=== PATIENT | female | born 1935 | race Caucasian/White ===

== ENCOUNTER → 2016-09-13 | Outpatient (CLI) | payer OTHER ==
[2016-09-13 12:20] LABS: PROTHROMBIN TIME 19.9 secs (9.7-11.4)
== END ==
LOC: MOB LAB 11:57 → LAB 11:57
PROVIDERS: ATTEND Internal Medicine Cardiovascular Disease
DX: I48.91 Unspecified atrial fibrillation (principal)
CPT/HCPCS: 36415; 85610

== ENCOUNTER → 2016-09-24 | Outpatient (CLI) | payer OTHER ==
[2016-09-24 11:29] LABS: PROTHROMBIN TIME 19.5 secs (9.7-11.4)
== END ==
LOC: LAB 10:25
PROVIDERS: ATTEND Internal Medicine Cardiovascular Disease
DX: I48.91 Unspecified atrial fibrillation (principal)
CPT/HCPCS: 36415; 85610

== ENCOUNTER → 2016-10-01 | Outpatient (CLI) | payer OTHER ==
[2016-10-01 15:59] LABS: PROTHROMBIN TIME 28.5 secs (9.7-11.4)
== END ==
LOC: LAB 15:14
PROVIDERS: ATTEND Internal Medicine Cardiovascular Disease
DX: I48.91 Unspecified atrial fibrillation (principal)
CPT/HCPCS: 36415; 85610

== ENCOUNTER → 2016-11-15 | Outpatient (CLI) | payer OTHER ==
[2016-11-15 09:42] LABS: BASOPHILS # (AUTO) 0.03 10*3/UL; BASOPHILS % (AUTO) 0.6 % (0-1); HEMATOCRIT 28.9 % (37.0-47.0); HEMOGLOBIN 8.1 g/dL (12.0-16.0); IMM GRAN % (AUTO) 0.2 % (0-5); IMM GRAN# (AUTO) 0.01 10*3/UL; LYMPHOCYTES # (AUTO) 0.58 10*3/uL; LYMPHOCYTES % (AUTO) 11.6 % (10-50); MEAN CORPUSCULAR HEMOGLOBIN 21.7 PG (27-31); MEAN PLATELET VOLUME 8.5 FL (7.4-12.2); NEUTROPHILS % (AUTO) 73.6 % (50-80); RDW COEFFICIENT OF VARIATION 20.3 % (11.5-14.5); RED BLOOD COUNT 3.73 10^6/uL (4.20-5.40); WHITE BLOOD COUNT 5.02 10^3/uL (4.8-10.8)
[2016-11-15 09:47] LABS: PLATELET MORPHOLOGY COMMENT NORMAL MORPHOLOGY (NORM)
[2016-11-15 09:53] LABS: PROTHROMBIN TIME 22.9 secs (9.7-11.4)
[2016-11-15 11:04] LABS: PERCENT IRON SATURATION 4.87 % (14-50)
== END ==
LOC: LAB 09:26
PROVIDERS: ATTEND Internal Medicine Gastroenterology
DX: I48.91 Unspecified atrial fibrillation (principal); D50.8 Other iron deficiency anemias
CPT/HCPCS: 36415; 83540; 83550; 85025; 85610

== ENCOUNTER → 2016-12-07 | Outpatient (CLI) | payer OTHER ==
--- NOTE | 2016-12-07 11:50 | DI ---
CT ABDOMEN SCAN WITHOUT AND WITH IV CONTRAST, 12/07/2016 8:27 AM : Clinical History: Iron deficiency anemia. Previous Exam: 11/25/2015. Scans are performed from the lower lung bases through the liver and kidneys without and with IV contr ast. Sagittal and coronal images are generated. 75 ml of Isovue 300 was injected IV. Low density oral barium contrast (Volumen - low density CT enterography oral contrast) was administered for all phase s of the exam, although the patient could only drink one bottle. Postcontrast scans through the upper abdomen and pelvis were performed at 1 minute and 5 minutes post injection. The delayed scans throug h the pelvis were performed with the metal artifact reduction sequence to better visualize the soft t issues of the pelvis. There is a small right pleural effusion. A prominent pectus excavatum deformity is noted. Even with t he pectus deformity, there is cardiomegaly with predominantly right heart enlargement. The noncontras t scans through the heart clearly demonstrate the right and left ventricular myocardial tissue as wel l as the septum and this would be consistent with the clinical diagnosis of anemia. The noncontrast a nd portal venous phase scans through the liver show a prominent appearance of the hepatic veins and I VC. This would suggest hepatic congestion with evidence of elevated right heart pressures and probabl e tricuspid insufficiency. Delayed scans through the liver show no evidence of metastatic disease. Th ere is cholelithiasis with calcified gallstones in the range of 10-15 mm in diameter. There is no jonathan ma of the gallbladder wall to indicate acute cholecystitis. The common hepatic duct and common bile d uct measure 4 mm. There is no evidence of intrahepatic biliary dilatation. However, the distal common bile duct is associated with some focal areas of increased density that are suspicious for common bi le duct stones that do not cause any obstruction. There is no abnormality of the spleen, pancreas, an d adrenal glands. Both kidneys are normal in size, shape, position and contour. There is no hydroneph rosis or hydroureter. No renal or ureteral calculi are present. There are no abnormal retrocrural or periaortic nodes. There is no ascites. READIN. Abnormal liver appearance on the precontrast and portal venous phase scans demonstrating prominen t hepatic veins and probably unopacified portions of liver parenchyma secondary to elevated right hea rt pressures and tricuspid insufficiency. There is no evidence of intrahepatic biliary dilatation or of a discrete solid or cystic lesion of the liver. 2. Cholelithiasis without evidence of acute cholecystitis. There is no dilatation of the common duct but there are densities similar to the gallstones in the path of the distal common bile duct. These are suspicious for nonobstructing common duct stones. 3. Prominent visualization of the right and left ventricular chambers consistent with the clinical d iagnosis of anemia. The differential density between the myocardial tissue in the blood in the chambe rs is significant and this suggests severe anemia. 4. Small right pleural effusion. CT PELVIS SCAN WITHOUT AND WITH IV CONTRAST, 12/07/2016 8:27 AM: Clinical History: See above. Previous Exam: 11/25/2015. Scans are performed from just superior to the umbilicus to the symphysis pubis without and with IV co ntrast. This is the same bolus of IV contrast used for the CT scans of the abdomen. Scans through the lower abdomen and pelvis show no masses or abnormal fluid collections. There is no adenopathy. The appendix is not visualized but there is no evidence of a cecal mass or an inflammator y mass in the right lower quadrant. The small bowel, terminal ileum, and ileocecal valve are intact. The colon is normal. No obvious annular lesion is identified. There is a very small umbilical hernia through which only mesenteric fat has herniated. The patient is status post hysterectomy and bilater al salpingo-oophorectomy. The patient has osteoporosis and is status post previous ORIF of a left hip fracture and has a total right hip replacement for a right hip fracture. READIN. No gross abnormality of the small or large bowel is seen to explain the patient's iron deficiency anemia. 2. Examination of the pelvis is otherwise normal. 3. Severe osteoporosis.
== END ==
LOC: CT 08:18
PROVIDERS: ATTEND Internal Medicine Gastroenterology
DX: D50.9 Iron deficiency anemia, unspecified (principal)
CPT/HCPCS: 36415; 74178; 82565; 84520

== ENCOUNTER → 2016-12-27 | Outpatient (CLI) | payer OTHER | LOC: LAB 10:41 | PROVIDERS: ATTEND Internal Medicine Cardiovascular Disease | DX: I48.91 Unspecified atrial fibrillation (principal) | CPT/HCPCS: 36415; 85610 ==

== ENCOUNTER 2017-01-27 17:45 | Inpatient (IN) | payer OTHER ==
[2017-01-27] MEDS ORDERED: NORMAL SALINE 10 ML SYRINGE FLUSH IVP PRN ×2 (17:58→22:11)
[2017-01-27] MEDS ORDERED: Sodium Chloride 0.9% 1,000 ML PRIMARY IV ONE (17:58)
[2017-01-27 18:20] LABS: VENOUS PH 7.42 (7.32-7.42)
[2017-01-27] MEDS ORDERED: Sodium Chloride 0.9% 1,000 ML ONE ×2 (18:49→20:39)
[2017-01-27] MEDS ORDERED: PANTOPRAZOLE IV 40 MG VIAL ONE (19:10)
[2017-01-27] MEDS ORDERED: METRONIDAZOLE 500 MG IV ONE (20:38)
[2017-01-27] MEDS ORDERED: cefTRIAXone 1 GM VIAL ONE (20:38)
[2017-01-27] MEDS ORDERED: Sodium Chloride 0.9% 100 ML IV ONE (20:47)
[2017-01-27] MEDS ORDERED: ACETAMINOPHEN 325 MG TABLET PO PRN (22:11)
[2017-01-27] MEDS ORDERED: ONDANSETRON 4 MG/2 ML VIAL IVP PRN (22:11)
[2017-01-27] MEDS ORDERED: Sodium Chloride 0.9% 500 ML PRIMARY IV ONE (22:11)
[2017-01-27] MEDS ORDERED: LIDOCAINE W/ SODIUM BICARB 0.5 ML SYR SUBD PRN (22:11)
[2017-01-27] MEDS ORDERED: LORATADINE 10 MG TABLET PO PRN (22:16)
[2017-01-27 22:17] LABS: BASOPHILS # (AUTO) 0.01 10*3/UL; BASOPHILS % (AUTO) 0.1 % (0-1); EOSINOPHILS # (AUTO) 0.01 10*3/UL; EOSINOPHILS % (AUTO) 0.1 % (0-8); HEMATOCRIT 25.4 % (37.0-47.0); HEMOGLOBIN 7.1 g/dL (12.0-16.0); LYMPHOCYTES # (AUTO) 0.14 10*3/uL; MEAN CORPUSCULAR HEMOGLOBIN 20.2 PG (27-31); MEAN CORPUSCULAR VOLUME 72.4 FL (81-99); MEAN PLATELET VOLUME 9.1 FL (7.4-12.2); MONOCYTES # (AUTO) 0.76 10*3/UL (0.3-0.8); NEUTROPHILS # (AUTO) 11.76 10*3/UL; NEUTROPHILS % (AUTO) 92.5 % (50-80); RED BLOOD COUNT 3.51 10^6/uL (4.20-5.40)
[2017-01-27 22:18] LABS: PLATELET MORPHOLOGY COMMENT NORMAL MORPHOLOGY (NORM); RBC MORPHOLOGY COMMENT SEE COMMENTS (NORM); WBC MORPHOLOGY COMMENT NORMAL MORPHOLOGY (NORM)
[2017-01-27] MEDS ORDERED: PHYTONADIONE 10 MG/1 ML AMPULE PO ONE (22:18)
[2017-01-27 22:24] LABS: BLOOD UREA NITROGEN 23 mg/dL (7-22); BUN/CREATININE RATIO 25.55 (6-20); C-REACTIVE PROTEIN 2.3 mg/dL (0.0-0.9); MAGNESIUM 1.8 mg/dL (1.6-2.4)
[2017-01-27 22:26] LABS: LIPASE 54 IU/L (23-300)
--- NOTE | 2017-01-27 22:28 | PDOC ---
History and Physical - History of Present Illness Date and Time of Service: 01/27/2017, 10:25 PM Chief Complaint: Abdominal pain History of Present Illness: This very pleasant 81-year-old female with prior history of iron deficiency anemia, atrial fibrillation, hip replacement that was treated for presumed infection that did not need to be washed out, amongst issues of hypertension as well. She comes in accompanied by her daughter in tonight with complaints of acute abdominal pain. The pain was located mostly in the midepigastric and left upper quadrant region. A CT scan was significant for diverticulitis in the emergency room. The patient had fevers and chills, and was quite weak and that's why her daughter called 911 to have her brought in by ambulance tonight from [place]. The patient was so weak, that she could barely sit up. She is stronger now and feels like fluids have helped a bit here in the emergency room. Patient's never had diverticular problems before. 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 Her INR was noted to be a 5.2 tonight as well. She had nausea but no vomiting. She denies any black or tarry stools or blood in the stool or any coffee-ground emesis. She did have a colonoscopy about a year ago with Dr. Mcfadden. I'm told that the CT scan did not show any perforation. I do not have the official report back yet from the CT scan. Past Medical History Medical History: 1. Chronic atrial fibrillation although this may have been paroxysmal atrial fibrillation. Patient is on flecainide, metoprolol. And Coumadin for stroke prevention. She tells me that her film mounter was thinking of taking her off of her Coumadin. 2. Hypertension. 3. Seasonal allergies. 4. Osteoarthritis, right knee has been flared lately. Surgical History: 1. Left hip fracture repair in 2013, subsequent hardware removal. 2. Total vaginal hysterectomy with bilateral support oophorectomy. 3. ORIF of right humeral fracture. 4. 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 That happened in 2015. 5. Arthroscopic knee surgery Pertinent Family History: Family history of heart disease with her father who of congestive heart failure in her mother who had a myocardial infarction but of COPD and diabetes complications Past Social History: Patient doesn't smoke and doesn't drink. Lives in [place], [place]. Has a daughter who is present here bedside tonight. Tobacco Use: Never Smoker Substance Use Type: None Alcohol Use: Rarely Medication / Allergies Home Medications: Home Medications Medication Instructions Recorded Confirmed Type Warfarin Sodium [Coumadin] 2 mg PO BEDTIME #0 tablet 02/10/14 01/27/17 Rx Flecainide Acetate 1 tab PO Q12H tab 05/09/14 01/27/17 History Metoprolol Succinate 1 tab PO DAILY tab 05/09/14 01/27/17 History Omeprazole 20 mg PO DAILY 09/09/15 01/27/17 History Beta Carot W/Vit E,C,Min Tab 1 each PO DAILY 12/16/15 01/27/17 History [Ocuvite Tab] Glucosa Camacho 2Kcl/Chondroitin Camacho 1 each PO DAILY 12/16/15 01/27/17 History [Glucosamine & Chondroitin Cap] Loratadine [Claritin] 10 mg PO DAILY PRN 12/16/15 01/27/17 History Potassium Chloride [Klor-Con] 20 meq PO DAILY tab 04/17/16 01/27/17 Rx Furosemide 1 tab PO DAILY PRN #30 tab 05/14/16 01/27/17 Clinic Estrogens, Conj Vaginal Cream 0.5 gm VAGINAL 3x wk #1 tube 09/13/16 01/27/17 Clinic [Premarin Vaginal Cream] Clobetasol Propionate [Temovate] 1 applic TOPICAL BID #1 tube 09/23/16 01/27/17 Clinic Benazepril HCl 20 mg PO DAILY tab 10/01/16 01/27/17 History Gabapentin 1 cap PO TID #90 cap 12/22/16 01/27/17 Clinic Allergies/Adverse Reactions: Allergies Allergy/AdvReac Type Severity Reaction Status Date / Time No Known Allergies Allergy Verified 01/27/17 17:49 Review of Systems - Review of Systems All Systems: Reviewed & No Additional Complaints Except as Stated (I did a 12 point review systems and it was negative other than that discussed in history present illness and that noted below.) - Constitutional Constitutional: REPORTS: Fever/Chills - Cardiovascular Cardiovascular: REPORTS: Negative System Review - Gastrointestinal Gastrointestinal / Abdominal: REPORTS: Nausea, Abdominal Pain - Genitourinary Genitourinary: REPORTS: Negative System Review - Musculoskeletal Musculoskeletal: REPORTS: Joint Pain - Knees (Right knee) Exam - Vitals Vital Signs: Vital Signs - Last Taken Temperature 98.2 F 01/27/17 17:45 Pulse Rate 70 01/27/17 17:45 Respiratory Rate 18 01/27/17 17:45 Blood Pressure 156/62 01/27/17 17:45 Pulse Ox 92 01/27/17 17:45 - General General Appearance: POSITIVE: No Acute Distress, Cooperative - Head Head Exam: POSITIVE: Normal Inspection, Normocephalic, Atraumatic - Eye Eye Exam: POSITIVE: No Scleral Icterus - ENT ENT Exam: POSITIVE: Mucous Membranes Dry - Neck Neck Exam: POSITIVE: Normal Inspection, No Tenderness, No Thyromegaly - Respiratory Respiratory Exam: POSITIVE: Clear to Auscultation - Bilaterally, Breathing Non Labored, Normal to Percussion and Palpation - Cardiovascular Cardiovascular Exam: POSITIVE: RRR, No Murmur, No Clicks, No Gallops, No Rubs - GI/Abdominal GI/Abdominal Exam: POSITIVE: Normal Bowel Sounds, Non Distended, Soft Additional GI/Abdominal Exam Details: Some central and left upper quadrant abdominal pain - Rectal Rectal Exam: POSITIVE: Deferred - External Exam: POSITIVE: Deferred Exam: POSITIVE: Deferred - Extremities Extremities Exam: POSITIVE: No Clubbing Present, No Edema Present, No Cyanosis Present - Back Back Exam: POSITIVE: Normal Inspection, No CVA Tenderness - Neurological Neurological Exam: POSITIVE: Alert, Oriented x 3, No Facial Droop, Speech Intact / Clear, Moves All Extremities Equally - Psychiatric Psychiatric Exam: POSITIVE: Normal Affect, Normal Mood - Integumentary Integumentary Exam: POSITIVE: Normal Color, Warm, Dry, Intact - Central Line Examination Central Line Present on Admission: No Results - Labs CBC and BMP: 01/27/17 18:00 01/27/17 18:00 Labs - Last 24 Hours: Laboratory Results 01/27/17 01/27/17 01/27/17 Range/Units 18:00 18:07 19:15 WBC 12.71 H (4.8-10.8) 10^3/uL RBC 3.51 L (4.20-5.40) 10^6/uL Hgb 7.1 L (12.0-16.0) g/dL Hct 25.4 L (37.0-47.0) % MCV 72.4 L (81-99) FL MCH 20.2 L (27-31) PG MCHC 28.0 L (33-37) g/dL RDW Std Deviation 54.9 H (39-50) fL RDW Coeff of Waqar 21.5 H (11.5-14.5) % Plt Count 344 (140-350) 10*3/uL MPV 9.1 (7.4-12.2) FL Immature Gran % (Auto) 0.2 (0-5) % Neut % (Auto) 92.5 H (50-80) % Lymph % (Auto) 1.1 L (10-50) % Butts % (Auto) 6.0 (5-15) % Eos % (Auto) 0.1 (0-8) % Baso % (Auto) 0.1 (0-1) % Immature Gran # (Auto) 0.03 10*3/UL Neut # (Auto) 11.76 10*3/UL Lymph # (Auto) 0.14 10*3/uL Butts # (Auto) 0.76 (0.3-0.8) 10*3/UL Eos # (Auto) 0.01 10*3/UL Baso # (Auto) 0.01 10*3/UL WBC Morphology Comment Normal morphology (NORM) Plt Morphology Comment Normal morphology (NORM) RBC Morph Comment See comments (NORM) PT 55.4 H (9.7-11.4) secs INR 5.20 (0.00-5.90) N/A D-Dimer 0.53 (0.00-0.59) mg/L VBG pH 7.42 (7.32-7.42) VBG pCO2 39 L (45-55) mmHg VBG HCO3 25 (22-26) mmol/L VBG Base Excess 0 (-2-2) MMOL/L Sodium 135 (135-145) meq/L Potassium 3.3 L (3.8-5.2) meq/L Chloride 102 (98-112) meq/L Carbon Dioxide 24 (23-33) meq/L Anion Gap 9 (5-20) BUN 23 H (7-22) mg/dL Creatinine 0.9 (0.50-1.20) mg/dL Estimated GFR [employer] BUN/Creatinine Ratio 25.55 H (6-20) Glucose 87 (78-110) mg/dL Calculated Osmolality 282.0 (267-292) mOsm/kg Lactic Acid 1.3 (0.70-2.10) MMOL/L Calcium 8.0 L (8.7-10.7) mg/dL Magnesium 1.8 (1.6-2.4) mg/dL Total Bilirubin 4.2 H (0.3-1.2) mg/dL AST 109 H (8-39) IU/L ALT 43 (9-52) IU/L Alkaline Phosphatase 194 H (38-126) IU/L Troponin I 0.015 (< 0.040) ng/mL C-Reactive Protein 2.3 H (0.0-0.9) mg/dL NT-Pro-B Natriuret Pep 45102 H (0-450) PG/ML Total Protein 6.0 L (6.1-8.0) g/dL Albumin 3.0 L (3.5-4.8) g/dL Globulin 3.0 (2.50-4.10) g/dL Albumin/Globulin Ratio 1.00 L (1.3-2.0) mg/g Amylase 44 (30-110) U/L Lipase 54 (23-300) IU/L Blood Type O POSITIVE Antibody Screen Negative Crossmatch See Detail - EKG Data -: EKG Interpreted by Me Rate: Normal EKG Shows Normal: Sinus Rhythm - EKG Data EKG Interpretation: LVH - Imaging Status: Image Reviewed by Me (Chest x-ray, on my view, shows a heart that looks enlarged although this is a portable film and a blunted costophrenic angle on the right. CT scan of the abdomen and pelvis, on my view shows what appears to be a distended gallbladder, liver looks atypical, but on the recent CT scan it was read as density changes without any mass or cystic lesion. There is a pleural effusion on the right as well. There is some distortion from the right hip fracture replacement done in the past. I cannot tell that there is any evidence of diverticulitis but there appears to be diverticular disease.) Assessment and Plan - Patient Problems (1) Acute diverticulitis Current Visit: Yes Status: Acute (2) Anemia associated with acute blood loss Current Visit: Yes Status: Acute (3) Hypokalemia Current Visit: Yes Status: Acute (4) Atrial fibrillation Current Visit: Yes Status: Chronic Qualifiers: Atrial fibrillation type: chronic Qualified Description: Chronic atrial fibrillation Qualifier Code(s): (I48.2) Chronic atrial fibrillation (5) Hypertension Current Visit: Yes Status: Chronic Qualifiers: Hypertension type: essential hypertension Qualified Description: Essential hypertension Qualifier Code(s): (I10) Essential (primary) hypertension (6) Pleural effusion Current Visit: Yes Status: Chronic (7) Elevated INR Current Visit: Yes Status: Acute (8) Abnormal liver CT Current Visit: Yes Status: Acute - Assessment / Plan Additional Assessment/Plan Details: Admit the patient. IV antibiotics including Rocephin and Flagyl for diverticulitis, started clear liquid diet and adjust as necessary. The pain is actually more centered in the epigastrium and left upper quadrant, so watch carefully as this could certainly be ulcer, and place on Protonix. Packed red blood cell transfusion and recheck blood counts tomorrow morning. I think at this time, vitamin K should be given and I'll get that by mouth 1 dose here tonight. Recheck PT and INR in the morning. Ultimately, I think the patient would do better on a different medication and I went through anticoagulant medication choices. The patient and I spoke in depth regarding Coumadin versus Xarelto versus Eliquis, including all risks and benefits, risks being bleeding complications and possible pitfalls of not being able to reverse bleeding with antidotes, and benefits cream treatment of blood clot, lack of drug interactions, and ease of therapy in terms of lab monitoring. The patient wants to think about it and also discuss wither her film mounter. holding off on coumadin for now tele monitoring replace potassium tylenol PRN for fever may need further workup on liver--MRI of abdomen or special phase CT scan of liver to explore more. The appearance on CT scan is abnormal, but no definitive diagnosis. add an alpha feto protein to AM labs. complex, lots of issues, infection, bleeding, transfusion, IV antibiotics. FULL CODE Photo / Body Diagrams - Uploaded Photos Uploaded Photos:
[2017-01-27] MEDS ORDERED: FLECAINIDE ACETATE 50 MG PO SCH (22:30)
--- NOTE | 2017-01-27 22:49 | PDOC ---
General Adult HPI - General Chief Complaint: General Medical Stated Complaint: WEAK, NAUSEATED, ABD PAIN, FEVER Date Seen by Provider: 01/27/17 Time Seen by Provider: 17:55 Source: POSITIVE: Patient, EMS Exam Limitations: POSITIVE: No limitations Nurse's Notes Reviewed & Considered: Yes EMS Report Reviewed & Considered: Verbal - History of Present Illness Initial Comment: The patient is an 81-year-old female who is transported to the emergency department per [facility] with complaints of generalized weakness, chills, nausea and abdominal cramping. The patient reports that she has a history of atrial fibrillation for which he takes Coumadin and flecanide. In addition she reports a history of iron deficiency anemia for which she has undergone fairly extensive workup recently with the GI doctors in [place]. She states she had upper and lower endoscopy as well as swallowing the camera. She was found to have some type of lesion in her small intestine for which she is scheduled to return to [place] on February 07 for some type of laser procedure. She reports that over the past couple of days she has had decreased appetite as well as some upper abdominal pain and cramping associated with nausea. She has not had any associated vomiting or diarrhea. She denies any blood in her stool. She states that this afternoon she developed chills. She attempted to get up out of her chair and was too weak to stand. Subsequently EMS was called. When they arrived on scene she was febrile with a temperature of 101. She was subsequently transported here to the emergency department. She was somewhat hypoxic when EMS arrived and she was placed on O2 per nasal cannula. She denies any complaints of chest pain. She does report she has had some increase shortness of breath recently which she attributes to her anemia. She denies any pain or swelling in her legs. Have you received a tetanus shot in the past 10 years?: Yes - Patient Home Medications Home Medications: Home Medications Warfarin Sodium [Coumadin] 2 mg PO BEDTIME #0 tablet 02/10/14 Flecainide Acetate 1 tab PO Q12H tab 05/09/14 Metoprolol Succinate 1 tab PO DAILY tab 05/09/14 Omeprazole 20 mg PO DAILY 09/09/15 Beta Carot W/Vit E,C,Min Tab [Ocuvite Tab] 1 each PO DAILY 12/16/15 Glucosa Camacho 2Kcl/Chondroitin Camacho [Glucosamine & Chondroitin Cap] 1 each PO DAILY 12/16/15 Loratadine [Claritin] 10 mg PO DAILY PRN 12/16/15 Potassium Chloride [Klor-Con] 20 meq PO DAILY tab 04/17/16 Furosemide 1 tab PO DAILY PRN #30 tab 05/14/16 Estrogens, Conj Vaginal Cream [Premarin Vaginal Cream] 0.5 gm VAGINAL 3x wk #1 tube 09/13/16 Clobetasol Propionate [Temovate] 1 applic TOPICAL BID #1 tube 09/23/16 Benazepril HCl 20 mg PO DAILY tab 10/01/16 Gabapentin 1 cap PO TID #90 cap 12/22/16 - Patient Allergies Allergies/Adverse Reactions: Allergies Allergy/AdvReac Type Severity Reaction Status Date / Time No Known Allergies Allergy Verified 01/27/17 17:49 Past Medical History - heen HEENT History: Macular Degeneration, Chipped or Loose Teeth, Other (please comment) Additional HEENT History: SOME MISSING TEETH. ENVIRONMENTAL ALLERGIES WITH DRAINAGE Cardiovascular History: CHF, Arrhythmia, Other (please comment) Additional Cardiovasular History: A- fib./ ON COUMADIN. TRICUSPID REGURGITATION. MITRAL AND AORTIC REGURGITATION Respiratory History: Denies History Gastrointestinal History: GERD Genitourinary History: Denies History Endocrine History: Denies History Musculoskeletal History: Arthritis, Osteoporosis Prosthesis or Implant: Yes (RIGHT HIP) Additional Musculoskeletal History: Bilateral knees scopes,. right hip replacment Neurological History: Denies History Blood Disorders: Denies History, Anemia Psychiatric History: Denies History History of Sexually Transmitted Diseases: No Female Reproductive History: Denies History Obstetrical History: Denies History Cancer History: Denies History In Past Year Been Physically Harmed or Verbally Threatened: No History of MDRO: No History of Other Communicable Diseases: No Tobacco Use: Never Smoker Alcohol Use: None Substance Use Type: None Previous Surgical History: Yes Type / Date of Surgery: RIGHT HIP FX/LEFT HIP FX/RIGHT HUMERUS FX/APPENDECTOMY, R SHOULDER REPAIR, TOTAL HYSTERECTOMY, BILATERAL KNEE SCOPES. Anesthesia Reactions: No (PONV IN PAST) Malignant Hyperthermia: No Significant Family History: Heart disease Additional Family History: Parents and brothers Past Medical History Reviewed: Reviewed - No Changes ROS - Limitations ROS Limitations: No Limitations Constitution: REPORTS: Chills, Fever Cardiovascular: DENIES: Chest Pain, Heart Palpitations, Edema Respiratory: REPORTS: Shortness Of Breath. DENIES: Cough Non Productive, Cough Productive, Hurts To Breathe Neurological: REPORTS: Denies Neuro Symptoms. DENIES: Numbness, Weakness Gastrointestinal: REPORTS: Abdominal Pain, Nausea, Constipation (She reports intermittent constipation). DENIES: Vomitting, Diarrhea, Black Stools, Bloody Stools Musculoskeletal: REPORTS: Denies MS Symptoms Genitourinary: REPORTS: Denies Symptoms, Other (She does report she has had decreased urination today). DENIES: Dysuria, Flank Pain, Hematuria, Difficulty Urinating Eyes: REPORTS: Denies Symptoms ENT: REPORTS: Denies Symptoms Skin: DENIES: Rash General Adult Exam - General Appearance General Appearance: POSITIVE: Alert, Cooperative, No Acute Distress - HEENT HEENT: POSITIVE: Head Inspection Nml, Dry Mucous Membranes, Other (Pale mucous membranes) - Neck Neck: POSITIVE: Normal Inspection. NEGATIVE: Lymphadenopathy - Respiratory Respiratory: POSITIVE: No Respiratory Distress, Breath Sounds Normal - Cardiovascular Cardiovascular: POSITIVE: Regular Rate & Rhythm Peripheral Pulses: Dorsalis-pedis (R): 2+, Dorsalis-pedis (L): 2+ - Abdomen Abdomen: Soft: (All Quadrants), No Guarding: (All Quadrants), No Rebound: (All Quadrants), No Distention: (All Quadrants) Additional Abdominal Details: She does report some generalized abdominal discomfort with exam however denies nawaf tenderness - Back Back: POSITIVE: Normal Inspection - Skin Skin: POSITIVE: No Rash, Pallor - Extremities Extremity: Normal ROM: (All Extremities), Normal Inspection: (All Extremities) - Neurological / Psychological Neurological: POSITIVE: Oriented X3, 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 Lab Results Reviewed: Yes Lab Results:: Laboratory Results 01/27/17 01/27/17 01/27/17 Range/Units 18:00 18:07 19:15 WBC 12.71 H (4.8-10.8) 10^3/uL RBC 3.51 L (4.20-5.40) 10^6/uL Hgb 7.1 L (12.0-16.0) g/dL Hct 25.4 L (37.0-47.0) % MCV 72.4 L (81-99) FL MCH 20.2 L (27-31) PG MCHC 28.0 L (33-37) g/dL RDW Std Deviation 54.9 H (39-50) fL RDW Coeff of Waqar 21.5 H (11.5-14.5) % Plt Count 344 (140-350) 10*3/uL MPV 9.1 (7.4-12.2) FL Immature Gran % (Auto) 0.2 (0-5) % Neut % (Auto) 92.5 H (50-80) % Lymph % (Auto) 1.1 L (10-50) % Forrest % (Auto) 6.0 (5-15) % Eos % (Auto) 0.1 (0-8) % Baso % (Auto) 0.1 (0-1) % Immature Gran # (Auto) 0.03 10*3/UL Neut # (Auto) 11.76 10*3/UL Lymph # (Auto) 0.14 10*3/uL Forrest # (Auto) 0.76 (0.3-0.8) 10*3/UL Eos # (Auto) 0.01 10*3/UL Baso # (Auto) 0.01 10*3/UL WBC Morphology Comment Normal morphology (NORM) Plt Morphology Comment Normal morphology (NORM) RBC Morph Comment See comments (NORM) PT 55.4 H (9.7-11.4) secs INR 5.20 (0.00-5.90) N/A D-Dimer 0.53 (0.00-0.59) mg/L VBG pH 7.42 (7.32-7.42) VBG pCO2 39 L (45-55) mmHg VBG HCO3 25 (22-26) mmol/L VBG Base Excess 0 (-2-2) MMOL/L Sodium 135 (135-145) meq/L Potassium 3.3 L (3.8-5.2) meq/L Chloride 102 (98-112) meq/L Carbon Dioxide 24 (23-33) meq/L Anion Gap 9 (5-20) BUN 23 H (7-22) mg/dL Creatinine 0.9 (0.50-1.20) mg/dL Estimated GFR Overlay Plastician BUN/Creatinine Ratio 25.55 H (6-20) Glucose 87 (78-110) mg/dL Calculated Osmolality 282.0 (267-292) mOsm/kg Lactic Acid 1.3 (0.70-2.10) MMOL/L Calcium 8.0 L (8.7-10.7) mg/dL Magnesium 1.8 (1.6-2.4) mg/dL Total Bilirubin 4.2 H (0.3-1.2) mg/dL AST 109 H (8-39) IU/L ALT 43 (9-52) IU/L Alkaline Phosphatase 194 H (38-126) IU/L Troponin I 0.015 (< 0.040) ng/mL C-Reactive Protein 2.3 H (0.0-0.9) mg/dL NT-Pro-B Natriuret Pep 40945 H (0-450) PG/ML Total Protein 6.0 L (6.1-8.0) g/dL Albumin 3.0 L (3.5-4.8) g/dL Globulin 3.0 (2.50-4.10) g/dL Albumin/Globulin Ratio 1.00 L (1.3-2.0) mg/g Amylase 44 (30-110) U/L Lipase 54 (23-300) IU/L Blood Type O POSITIVE Antibody Screen Negative Crossmatch See Detail EKG Interpretation:: POSITIVE: Normal Sinus Rhythm, Other (No acute ST segment or T-wave changes) - Patient's Progress MDM / ED Course: The patient did receive a 1 L bolus of normal saline. Her lab work reveals an elevated white count at 12.7. She is also anemic with a hemoglobin of 7.1. She was subsequently typed and crossed for 2 units of packed red blood cells. Her INR was also found to be elevated at 5.2. She did not exhibit any clinical evidence of active bleeding here in the emergency department. CT scan reveals evidence of gallstones with a distended gallbladder as well as early sigmoid diverticulitis per radiologist. Blood cultures had been obtained with IV start and her lactate was normal. Findings were discussed with the patient as well as with Dr. Prasad. She will be treated for diverticulitis with Rocephin and Flagyl. She will be admitted for further treatment and monitoring. - Consult Counseled: POSITIVE: Patient, Family, RE: Lab Results, RE: Radiology Results, RE : DX Patient Care Time - Estimated PCT Patient Care Time (In Minutes): 40 Vital Signs - Recent Vital Signs Vital Signs: Vital Signs (Last 8 hours) Temp Pulse Resp BP Pulse Ox 01/27/17 17:45 98.2 F 70 18 156/62 92 - VS Reviewed Vital Signs Reviewed: Yes Discharge Clinical Impression: Atrial fibrillation, Elevated INR, Anemia, Diverticulitis, Cholelithiases Discharge Disposition: Admit to Inpatient Condition: Fair Date Decision to Admit to Inpatient: 01/27/17 Time Decision to Admit to Inpatient: 20:00
[2017-01-27] MEDS ORDERED: PHYTONADIONE 10 MG/1 ML AMPULE ONE (23:40)
[2017-01-27] MEDS ORDERED: Sodium Chloride 0.9% 50 ML IV ONE (23:40)
[2017-01-27] MEDS: metroNIDAZOLE 500mg (Premix) 500 MG in Premix 1 BAG IV SCH (23:50)
[2017-01-28] MEDS ORDERED: [UNRECOGNIZED DRUG - OTHER] PRIMARY IV ONE (00:26)
[2017-01-28] MEDS ORDERED: Sodium Chloride 0.9% 500 ML ONE ×2 (00:28→15:37)
[2017-01-28] MEDS ORDERED: CEFTRIAXONE SODIUM 2 GM VIAL IV ONE (02:19)
[2017-01-28] MEDS ORDERED: Sodium Chloride 0.9% 100 ML IV ONE (02:20)
[2017-01-28] MEDS: cefTRIAXone Inj 2 GM in Sodium Chloride 0.9% 100 ML IV SCH ×2 (02:20→21:52)
[2017-01-28] MEDS ORDERED: ACETAMINOPHEN 325 MG TABLET PO ONE ×2 (03:17→13:44)
--- NOTE | 2017-01-28 07:09 | EKG ---
[address] [address] Measurements Intervals [place] Rate: 65 P: MA: 0 QRS: 5 QRSD: 104 T: 46 QT: 451 QTc: 462 Interpretive Statements Sinus rhythm with first degree AV block LEFT VENTRICULAR HYPERTROPHY AND ST-T CHANGE [VOLTAGE CRITERIA PLUS ST/T ABNORMALITY] POSSIBLE ANTERIOR MYOCARDIAL INFARCTION [30 ms Q WAVE IN V3/V4, OR R < 0.2 mV IN V4], OF INDETERMINATE AGE Compared to ECG 03/22/2016 14:58:30 Sinus bradycardia no longer present Myocardial infarct finding still present Electronically Signed On 01-28-17 08:05:53 MDT by Guilehrme Bustillos MD [email or web address]
[2017-01-28] MEDS: metroNIDAZOLE 500mg (Premix) 500 MG in Premix 1 BAG IV SCH ×3 (07:10→22:30)
[2017-01-28] MEDS: Sodium Chloride 0.9% 1,000 ML PRIMARY IV SCH ×3 (07:10→14:00)
[2017-01-28 08:29] LABS: HEMOGLOBIN 9.4 g/dL (12.0-16.0); MEAN CORPUSCULAR HEMOGLOBIN 21.2 PG (27-31); MEAN CORPUSCULAR HGB CONC 29.4 g/dL (33-37); MEAN CORPUSCULAR VOLUME 72.1 FL (81-99); MEAN PLATELET VOLUME 9.5 FL (7.4-12.2); RED BLOOD COUNT 4.44 10^6/uL (4.20-5.40)
[2017-01-28 08:53] LABS: BAND NEUTROPHILS % 4 % (0-10); LYMPHOCYTES % (MANUAL) 5 % (10-50); NEUTROPHILS % (MANUAL) 87 % (50-80)
[2017-01-28 08:54] LABS: BASOPHILS % (MANUAL) 0 % (0-1); EOSINOPHILS % (MANUAL) 1 % (0-8); MONOCYTES % (MANUAL) 3 % (0-12); PLATELET MORPHOLOGY COMMENT NORMAL MORPHOLOGY (NORM); RBC MORPHOLOGY COMMENT NORMAL MORPHOLOGY (NORM); WBC MORPHOLOGY COMMENT NORMAL MORPHOLOGY (NORM)
[2017-01-28] MEDS: Pantoprazole Inj 40 MG in Normal Saline Flush 10 ML IVP SCH (09:36)
[2017-01-28] MEDS: POTASSIUM CHLORIDE 20 MEQ TAB PO SCH (09:38)
[2017-01-28] MEDS: Beta Carot W/Vit E,C,Min Tab 1 TAB TAB PO SCH (09:38)
[2017-01-28] MEDS: METOPROLOL SUCCINATE 50 MG SR 24H TABLET PO SCH (09:38)
[2017-01-28 09:39] LABS: BUN/CREATININE RATIO 21.25 (6-20); CALCIUM 8.1 mg/dL (8.7-10.7)
[2017-01-28] MEDS: GABAPENTIN 100 MG CAPSULE PO SCH ×3 (09:39→20:11)
[2017-01-28] MEDS ORDERED: FLECAINIDE 100 MG TABLET PO SCH (09:45)
--- NOTE | 2017-01-28 09:48 | DI ---
AP CHEST X-RAY, 01/27/2017 11:38 PM : Clinical History: Anemia. Previous Exam: 04/02/2016. There is no acute soft tissue or bony abnormality. There is cardiac megaly with CHF. The heart has a globular configuration in this can either represent a cardiomyopathy or a pericardial effusion. There is no acute infiltrate. A small right pleural effusion is present. Mediastinal structures are normal . There are no pulmonary nodules. Readin. Cardiomegaly with CHF. The heart has a globular configuration consistent with a cardiomyopathy or a pericardial effusion. 2. Small right pleural effusion.
[2017-01-28] MEDS ORDERED: POTASSIUM CHLORIDE 20 MEQ TAB PO ONE (10:22)
[2017-01-28] MEDS ORDERED: PHYTONADIONE 10 MG/1 ML AMPULE PO ONE (10:22)
--- NOTE | 2017-01-28 13:39 | PDOC(PROG) ---
Date and Time of Service: 01/28/2017, 1325 Interval History: *Some nausea, but tolerating diet with no vomiting. No chest pain or shortness breath. Still feels fatigued. Objective : Data - Labs CBC and BMP: 01/28/17 08:10 01/28/17 08:10 Labs - Last 24 Hours: Laboratory Results 01/28/17 Range/Units 08:10 WBC 15.10 H (4.8-10.8) 10^3/uL RBC 4.44 (4.20-5.40) 10^6/uL Hgb 9.4 L (12.0-16.0) g/dL Hct 32.0 L (37.0-47.0) % MCV 72.1 L (81-99) FL MCH 21.2 L (27-31) PG MCHC 29.4 L (33-37) g/dL RDW Std Deviation 54.4 H (39-50) fL RDW Coeff of Waqar 21.1 H (11.5-14.5) % Plt Count 319 (140-350) 10*3/uL MPV 9.5 (7.4-12.2) FL Neutrophils % (Manual) 87 H (50-80) % Band Neutrophils % 4 (0-10) % Lymphocytes % (Manual) 5 L (10-50) % Monocytes % (Manual) 3 (0-12) % Eosinophils % (Manual) 1 (0-8) % Basophils % (Manual) 0 (0-1) % Metamyelocytes % Not Reportable Myelocytes % Not Reportable Promyelocytes % Not Reportable Blast Cells Not Reportable WBC Morphology Comment Normal morphology (NORM) Plt Morphology Comment Normal morphology (NORM) RBC Morph Comment Normal morphology (NORM) PT 48.6 H (9.7-11.4) secs INR 4.57 (0.00-5.90) N/A Sodium 138 (135-145) meq/L Potassium 3.4 L (3.8-5.2) meq/L Chloride 104 (98-112) meq/L Carbon Dioxide 24 (23-33) meq/L Anion Gap 10 (5-20) BUN 17 (7-22) mg/dL Creatinine 0.8 (0.50-1.20) mg/dL Estimated GFR (>60 ml/min/1.73m(2)) BUN/Creatinine Ratio 21.25 H (6-20) Glucose 100 (78-110) mg/dL Calculated Osmolality 287.0 (267-292) mOsm/kg Calcium 8.1 L (8.7-10.7) mg/dL Objective : Exam - General General Appearance: No Acute Distress, Cooperative Additional General Exam Details: Vital Signs - Last Taken Temperature 97.2 F 01/28/17 08:29 Pulse Rate 56 L 01/28/17 08:29 Respiratory Rate 20 01/28/17 08:29 Blood Pressure 160/50 01/28/17 08:29 Pulse Ox 98 01/28/17 08:29 - Eye Eye Exam: No Scleral Icterus - Respiratory Respiratory Exam: Clear to Auscultation - Bilaterally, Breathing Non Labored - Cardiovascular Cardiovascular Exam: RRR, No Murmur, No Clicks, No Gallops, No Rubs, No JVD - GI/Abdominal GI/Abdominal Exam: Normal Bowel Sounds, Non Tender, Non Distended, Soft - Extremities Extremities Exam: No Clubbing Present, No Edema Present, No Cyanosis Present - Neurological Neurological Exam: Alert, Oriented x 3, No Facial Droop, Speech Intact / Clear, Moves All Extremities Equally Assessment and Plan - Patient Problems (1) Acute diverticulitis Current Visit: Yes Status: Acute (2) Anemia associated with acute blood loss Current Visit: Yes Status: Acute (3) Hypokalemia Current Visit: Yes Status: Acute (4) Atrial fibrillation Current Visit: Yes Status: Chronic Qualifiers: Atrial fibrillation type: chronic Qualified Description: Chronic atrial fibrillation Qualifier Code(s): (I48.2) Chronic atrial fibrillation (5) Hypertension Current Visit: Yes Status: Chronic Qualifiers: Hypertension type: essential hypertension Qualified Description: Essential hypertension Qualifier Code(s): (I10) Essential (primary) hypertension (6) Pleural effusion Current Visit: Yes Status: Chronic (7) Elevated INR Current Visit: Yes Status: Acute (8) Abnormal liver CT Current Visit: Yes Status: Acute - Assessment / Plan Additional Assessment/Plan Details: Continue antibiotics, day 2 Advance diet to regular diet. I think we need to figure out what kind of imaging we need to do either MRI or a three-phase, chest CT study to look at the sliver in more depth. That being said, if it's from congestive heart failure and some of the studies have suggested severe anemia and increased chamber of heart dysfunction, then I think she might benefit from another unit of blood to keep her hemoglobin around 10 to avoid congestive heart failure from anemia. I will get her another unit today. Reduce fluids to 75 mL's per hour and probably stop tomorrow. Check labs tomorrow. Repeat vitamin K and continue to hold Coumadin. Photo / Body Diagrams - Uploaded Photos Uploaded Photos:
[2017-01-28] MEDS ORDERED: Sodium Chloride 0.9% 500 ML PRIMARY IV ONE (16:13)
--- NOTE | 2017-01-28 17:02 | DI ---
CT ABDOMEN SCAN WITHOUT AND WITH IV CONTRAST, 01/28/2017 2:00 PM : Clinical History: Abnormal postcontrast CT scan of the liver. Previous Exam: 11/25/2015; 12/07/2016; and 01/27/2017. Scans are performed from the lower lung bases through the liver and kidneys without and with IV contr ast. Sagittal and coronal reformatted images are generated. 75 ml of Isovue 300 was injected IV. Post contrast scans were obtained at 25 seconds, 60 seconds, and 3 minutes post injection. There is a prominent pectus excavatum deformity. A small right pleural effusion is present with right lower lobe atelectasis. There is cardiomegaly with 4 chamber dilatation consistent with a cardiomyop athy. There is retained contrast in the right heart at 25 seconds indicating there is decreased cardi ac output. The IVC is dilated and is larger in caliber than the aorta indicating elevated right heart pressures with tricuspid insufficiency. The liver is at the upper limits of normal in size and demon strates a mottled pattern on the noncontrast scans as well as the postcontrast scans. On the delayed 3 minute scan, the liver has a more uniform density. Review of the serial scans show that the liver a nd IVC from the study of 11/25/2015 have a normal appearance. The subsequent scans demonstrate signifi cant enlargement of the right heart with dilatation of the IVC indicating the patient had developed c or pulmonale with tricuspid insufficiency. The mottled appearance of the liver is consistent with anand ous congestion of the liver. Multiple laminated gallstones are present in the dependent portion of th e gallbladder without evidence of gallbladder edema to indicate acute cholecystitis. The common bile duct is dilated at 7-8 mm. There is some high density material in the distal common bile duct and com mon bile duct stones cannot be excluded. These findings in the common duct are new since the study of 12/07/2016. Both adrenal glands, the pancreas, and the spleen are normal. Both kidneys are normal in s ize, shape, position and contour. There is no hydronephrosis or hydroureter. No renal or ureteral renee culi are present. There are no abnormal retrocrural or periaortic nodes. There is no ascites. READIN. The mottled abnormal low-density pattern in the liver is secondary to cor pulmonale with tricuspi d insufficiency producing venous congestion of the liver. There is four-chamber dilatation and this p atient probably has a cardiomyopathy. Delayed passage of contrast into the systemic vascular system i ndicates decreased cardiac output. The IVC has a caliber greater than the aorta indicating elevated r ight heart pressures. 2. Cholelithiasis. The common duct measures 7-8 mm and there are some densities in the distal common bile duct. Distal common bile duct stones causing partial obstruction cannot be excluded. These find ings are new since the study from 12/07/2016.
[2017-01-29] MEDS: Sodium Chloride 0.9% 1,000 ML PRIMARY IV SCH (02:35)
[2017-01-29 05:42] LABS: BASOPHILS # (AUTO) 0.01 10*3/UL; BASOPHILS % (AUTO) 0.1 % (0-1); EOSINOPHILS # (AUTO) 0.09 10*3/UL; EOSINOPHILS % (AUTO) 0.8 % (0-8); HEMATOCRIT 34.5 % (37.0-47.0); HEMOGLOBIN 10.2 g/dL (12.0-16.0); LYMPHOCYTES # (AUTO) 0.36 10*3/uL; MEAN CORPUSCULAR HEMOGLOBIN 21.7 PG (27-31); MEAN CORPUSCULAR HGB CONC 29.6 g/dL (33-37); MEAN CORPUSCULAR VOLUME 73.2 FL (81-99); MEAN PLATELET VOLUME 10.9 FL (7.4-12.2); MONOCYTES # (AUTO) 0.78 10*3/UL (0.3-0.8); MONOCYTES % (AUTO) 6.8 % (5-15); NEUTROPHILS # (AUTO) 10.18 10*3/UL; NEUTROPHILS % (AUTO) 89.1 % (50-80); RED BLOOD COUNT 4.71 10^6/uL (4.20-5.40)
[2017-01-29] MEDS: metroNIDAZOLE 500mg (Premix) 500 MG in Premix 1 BAG IV SCH ×2 (05:49→14:42)
[2017-01-29 05:58] LABS: BUN/CREATININE RATIO 18.88 (6-20); CALCIUM 8.2 mg/dL (8.7-10.7)
[2017-01-29 06:06] LABS: PLATELET MORPHOLOGY COMMENT NORMAL MORPHOLOGY (NORM); RBC MORPHOLOGY COMMENT SEE COMMENTS (NORM); WBC MORPHOLOGY COMMENT NORMAL MORPHOLOGY (NORM)
[2017-01-29] MEDS: Pantoprazole Inj 40 MG in Normal Saline Flush 10 ML IVP SCH (08:53)
[2017-01-29] MEDS: GABAPENTIN 100 MG CAPSULE PO SCH (08:55)
[2017-01-29] MEDS: Beta Carot W/Vit E,C,Min Tab 1 TAB TAB PO SCH (08:55)
[2017-01-29] MEDS: METOPROLOL SUCCINATE 50 MG SR 24H TABLET PO SCH (08:56)
[2017-01-29] MEDS: POTASSIUM CHLORIDE 20 MEQ TAB PO SCH (08:56)
[2017-01-29] MEDS ORDERED: PHYTONADIONE 10 MG/1 ML AMPULE PO ONE (11:35)
--- NOTE | 2017-01-29 14:10 | DCSUMMARY ---
Hospitalization Summary Admit Date: 01/27/17 Discharge Date: 01/29/17 Primary Diagnosis:: sigmoid diverticulitis Secondary Diagnosis:: 1. Cardiomyopathy, possibly related to anemia, but cannot rule out other causes. 2. Atrial fibrillation 3. INR above 5. Now at 2.75 4. Anemia due to acute and chronic GI blood loss. 5. Cholelithiasis with choledocholithiasis suspected from CT scan. Liver congestion may also be playing a role in liver appearance. CT scan suggests choledocholithiasis. [address] scan of the abdomen shows liver congestion. Hospital Course: This is a very pleasant 81-year-old female that presented to us on the with complaints of abdominal pain. She located the abdominal pain in her epigastrium and on the left upper quadrant, but a CT scan was positive for diverticulitis. The same CT scan also showed possible liver congestion or fibrosis and it was recommended that further imaging be done. The patient had a prior hip replacement done and really is not a candidate for an abdominal MRI scan because of the hip replacement, so we got a 3-phase CT scan, and it showed liver congestion and four-chamber dilation consistent with cardiomyopathy, but did show choledocholithiasis. It appeared that stones were partially obstructive. The patient's total bilirubin and alkaline phosphatase have been elevated through the hospital stay, and it was difficult to tell prior to this three-phase study whether this was related to liver congestion and heart failure or not. The patient was admitted and placed on Rocephin and Flagyl, today being day 3 of therapy, for sigmoid diverticulitis. She is tolerating that well, and is actually advanced to a regular diet now and fluids a bit discontinued. The patient had significant anemia with her hemoglobin being around 7, we gave her 3 units total of packed red blood cells during the hospital stay. I don't know if this cardiomyopathy is reversible related to anemia or not, but that could certainly be one of the issues. Coronary artery disease has not been looked at in this patient for some time, and I think she would benefit from an evaluation for this cardiomyopathy. INR has been difficult to bring down, but I think the patient candidate for Coumadin therapy. She does require some medications for stroke prevention, but I think her valvular heart disease needs to be evaluated in more depth as well. She'll benefit from a high quality echocardiogram. I did stop her flecainide as she was quite bradycardic, and I think she'll be fine on the metoprolol alone. Given this constellation of findings, possible need for an ERCP, and eventual need for cardiac evaluation, I spoke with the hospitalist and rooming house operator in [place] regarding potential for transfer so that the process of these workups could be continued. Dr. Gayle graciously accepted the patient in transfer, and the rooming house operator stated that patient would likely need an ERCP although pending the workup discussed above. I told him I agreed with that wholeheartedly and felt that's why I wanted to transfer the patient in the first place. The patient is agreeable to the transfer. No complains of chest pain, shortness breath, but she does have some mild right quadrant. She is right upper quadrant pain. Assessment and Plan: 1. As per discharge assessments noted 2. Disposition: Patient is discharged to [facility] 3. Condition on discharge, stable and improved. However, based on the above conditions, the patient's condition could deteriorate 4. Diet: regular diet 5. Activities: As per Dr. Gayle in [facility] 6. Follow-Up: 1. 7 days post discharge from [facility], patient should see Dr. He 2. 7. Medications at the Time of Discharge: Active Medications Generic Name Dose Route Start Last Admin Trade Name Freq PRN Reason Stop Dose Admin Acetaminophen 650 mg 01/27/17 22:11 01/28/17 03:15 Tylenol PO 650 mg Q6H PRN Administration Pain or Fever Gabapentin 100 mg 01/28/17 09:00 01/29/17 08:55 Neurontin PO 100 mg TID CANDIDA Administration Ceftriaxone Sodium 2 gm/ 100 mls @ 200 mls/hr 01/27/17 22:30 01/28/17 21:52 Sodium Chloride IV 200 mls/hr Q24H CANDIDA Administration Metronidazole 500 mg/ Non- 100 mls @ 100 mls/hr 01/27/17 22:30 01/29/17 05:49 Formulary Medication IV 100 mls/hr Q8H CANDIDA Administration Sodium Chloride 25 mls @ 200 mls/hr 01/27/17 22:11 01/28/17 00:08 Normal Saline 0.9% IV 200 mls/hr .Post Infusion PRN Administration No Primary IV for Flush ONLY Pantoprazole Sodium 40 mg/ 10 mls @ 5 mls/min 01/28/17 09:00 01/29/17 08:53 Sodium Chloride IVP 5 mls/min DAILY CANDIDA Administration Lidocaine HCl 0.5 ml 01/27/17 22:11 Lidocaine Buffered Inj SUBD ONCE PRN IV Starts Loratadine 10 mg 01/27/17 22:16 Claritin PO DAILY PRN Allergies Metoprolol Succinate 50 mg 01/28/17 09:00 01/29/17 08:56 Toprol Xl PO 50 mg DAILY CANDIDA Administration Multivitamins/Minerals 1 tab 01/28/17 09:00 01/29/17 08:55 Ocuvite Tab PO 1 tab DAILY CANDIDA Administration Ondansetron HCl 4 mg 01/27/17 22:11 Zofran Inj IVP Q4H PRN NAUSEA / VOMITING Potassium Chloride 20 meq 01/28/17 09:00 01/29/17 08:56 Klor-Con PO 20 meq DAILY CANDIDA Administration Sodium Chloride 5 - 20 ml 01/27/17 22:11 01/28/17 07:10 Saline Flush IVP 10 ml BID PRN Administration Flush 8. Time, care, counseling and coordination of care for this discharge is greater than 30 minutes. Note that I had all films pushed up to Rob as well. From December on. Exam - Vitals Vital Signs: Vital Signs Temperature 98.6 F Temperature Source Temporal Artery Scan Pulse Rate [Apical] 86 Pulse Rate [Pulse Oximeter 70 Right] Pulse Rate 63 Respiratory Rate 18 Blood Pressure [Right Arm] 130/70 Blood Pressure 148/62 Pulse Ox 92 Oxygen Flow Rate 1 Oxygen Delivery Method Room Air Height 5 ft 9 in Weight 151 lb 12.8 oz - General General Appearance: POSITIVE: No Acute Distress, Cooperative - Head Head Exam: POSITIVE: Normal Inspection, Normocephalic, Atraumatic - Eye Eye Exam: POSITIVE: No Scleral Icterus - Respiratory Respiratory Exam: POSITIVE: Clear to Auscultation - Bilaterally, Breathing Non Labored - Cardiovascular Cardiovascular Exam: POSITIVE: RRR, No Murmur, No Clicks, No Gallops, No Rubs, No JVD - GI/Abdominal GI/Abdominal Exam: POSITIVE: Normal Bowel Sounds, Non Tender, Non Distended, Soft - Extremities Extremities Exam: POSITIVE: No Clubbing Present, No Edema Present, No Cyanosis Present - Neurological Neurological Exam: POSITIVE: Alert, Oriented x 3, No Facial Droop, Speech Intact / Clear, Moves All Extremities Equally - Psychiatric Psychiatric Exam: POSITIVE: Normal Affect, Normal Mood Data Perinent Studies: Laboratory Results 01/27/17 01/27/17 01/27/17 Range/Units 18:00 18:07 19:15 WBC 12.71 H (4.8-10.8) 10^3/uL RBC 3.51 L (4.20-5.40) 10^6/uL Hgb 7.1 L (12.0-16.0) g/dL Hct 25.4 L (37.0-47.0) % MCV 72.4 L (81-99) FL MCH 20.2 L (27-31) PG MCHC 28.0 L (33-37) g/dL RDW Std Deviation 54.9 H (39-50) fL RDW Coeff of Waqar 21.5 H (11.5-14.5) % Plt Count 344 (140-350) 10*3/uL MPV 9.1 (7.4-12.2) FL Immature Gran % (Auto) 0.2 (0-5) % Neut % (Auto) 92.5 H (50-80) % Lymph % (Auto) 1.1 L (10-50) % Cedar % (Auto) 6.0 (5-15) % Eos % (Auto) 0.1 (0-8) % Baso % (Auto) 0.1 (0-1) % Immature Gran # (Auto) 0.03 10*3/UL Neut # (Auto) 11.76 10*3/UL Lymph # (Auto) 0.14 10*3/uL Cedar # (Auto) 0.76 (0.3-0.8) 10*3/UL Eos # (Auto) 0.01 10*3/UL Baso # (Auto) 0.01 10*3/UL Neutrophils % (Manual) (50-80) % Band Neutrophils % (0-10) % Lymphocytes % (Manual) (10-50) % Monocytes % (Manual) (0-12) % Eosinophils % (Manual) (0-8) % Basophils % (Manual) (0-1) % Metamyelocytes % Myelocytes % Promyelocytes % Blast Cells WBC Morphology Comment Normal morphology (NORM) Plt Morphology Comment Normal morphology (NORM) RBC Morph Comment See comments (NORM) PT 55.4 H (9.7-11.4) secs INR 5.20 (0.00-5.90) N/A D-Dimer 0.53 (0.00-0.59) mg/L VBG pH 7.42 (7.32-7.42) VBG pCO2 39 L (45-55) mmHg VBG HCO3 25 (22-26) mmol/L VBG Base Excess 0 (-2-2) MMOL/L Sodium 135 (135-145) meq/L Potassium 3.3 L (3.8-5.2) meq/L Chloride 102 (98-112) meq/L Carbon Dioxide 24 (23-33) meq/L Anion Gap 9 (5-20) BUN 23 H (7-22) mg/dL Creatinine 0.9 (0.50-1.20) mg/dL Estimated GFR Consignee BUN/Creatinine Ratio 25.55 H (6-20) Glucose 87 (78-110) mg/dL Calculated Osmolality 282.0 (267-292) mOsm/kg Lactic Acid 1.3 (0.70-2.10) MMOL/L Calcium 8.0 L (8.7-10.7) mg/dL Magnesium 1.8 (1.6-2.4) mg/dL Total Bilirubin 4.2 H (0.3-1.2) mg/dL Conjugated Bilirubin (0.0-0.3) MG/DL Unconjugated Bilirubin (0.0-1.1) mg/dL AST 109 H (8-39) IU/L ALT 43 (9-52) IU/L Alkaline Phosphatase 194 H (38-126) IU/L Troponin I 0.015 (< 0.040) ng/mL C-Reactive Protein 2.3 H (0.0-0.9) mg/dL NT-Pro-B Natriuret Pep 27504 H (0-450) PG/ML Total Protein 6.0 L (6.1-8.0) g/dL Albumin 3.0 L (3.5-4.8) g/dL Globulin 3.0 (2.50-4.10) g/dL Albumin/Globulin Ratio 1.00 L (1.3-2.0) mg/g Amylase 44 (30-110) U/L Lipase 54 (23-300) IU/L Blood Type O POSITIVE Antibody Screen Negative Crossmatch See Detail 01/28/17 01/29/17 Range/Units 08:10 04:15 WBC 15.10 H 11.43 H (4.8-10.8) 10^3/uL RBC 4.44 4.71 (4.20-5.40) 10^6/uL Hgb 9.4 L 10.2 L (12.0-16.0) g/dL Hct 32.0 L 34.5 L (37.0-47.0) % MCV 72.1 L 73.2 L (81-99) FL MCH 21.2 L 21.7 L (27-31) PG MCHC 29.4 L 29.6 L (33-37) g/dL RDW Std Deviation 54.4 H 59.7 H (39-50) fL RDW Coeff of Waqar 21.1 H 22.9 H (11.5-14.5) % Plt Count 319 332 (140-350) 10*3/uL MPV 9.5 10.9 (7.4-12.2) FL Immature Gran % (Auto) 0.1 (0-5) % Neut % (Auto) 89.1 H (50-80) % Lymph % (Auto) 3.1 L (10-50) % Cedar % (Auto) 6.8 (5-15) % Eos % (Auto) 0.8 (0-8) % Baso % (Auto) 0.1 (0-1) % Immature Gran # (Auto) 0.01 10*3/UL Neut # (Auto) 10.18 10*3/UL Lymph # (Auto) 0.36 10*3/uL Cedar # (Auto) 0.78 (0.3-0.8) 10*3/UL Eos # (Auto) 0.09 10*3/UL Baso # (Auto) 0.01 10*3/UL Neutrophils % (Manual) 87 H (50-80) % Band Neutrophils % 4 (0-10) % Lymphocytes % (Manual) 5 L (10-50) % Monocytes % (Manual) 3 (0-12) % Eosinophils % (Manual) 1 (0-8) % Basophils % (Manual) 0 (0-1) % Metamyelocytes % Not Reportable Myelocytes % Not Reportable Promyelocytes % Not Reportable Blast Cells Not Reportable WBC Morphology Comment Normal morphology Normal morphology (NORM) Plt Morphology Comment Normal morphology Normal morphology (NORM) RBC Morph Comment Normal morphology See comments (NORM) PT 48.6 H 28.9 H (9.7-11.4) secs INR 4.57 2.75 (0.00-5.90) N/A D-Dimer (0.00-0.59) mg/L VBG pH (7.32-7.42) VBG pCO2 (45-55) mmHg VBG HCO3 (22-26) mmol/L VBG Base Excess (-2-2) MMOL/L Sodium 138 137 (135-145) meq/L Potassium 3.4 L 4.1 (3.8-5.2) meq/L Chloride 104 108 (98-112) meq/L Carbon Dioxide 24 20 L (23-33) meq/L Anion Gap 10 9 (5-20) BUN 17 17 (7-22) mg/dL Creatinine 0.8 0.9 (0.50-1.20) mg/dL Estimated GFR BUN/Creatinine Ratio 21.25 H 18.88 (6-20) Glucose 100 79 (78-110) mg/dL Calculated Osmolality 287.0 284.0 (267-292) mOsm/kg Lactic Acid (0.70-2.10) MMOL/L Calcium 8.1 L 8.2 L (8.7-10.7) mg/dL Magnesium (1.6-2.4) mg/dL Total Bilirubin 5.8 H (0.3-1.2) mg/dL Conjugated Bilirubin 2.80 H (0.0-0.3) MG/DL Unconjugated Bilirubin 1.5 H (0.0-1.1) mg/dL AST 67 H (8-39) IU/L ALT 43 (9-52) IU/L Alkaline Phosphatase 197 H (38-126) IU/L Troponin I (< 0.040) ng/mL C-Reactive Protein (0.0-0.9) mg/dL NT-Pro-B Natriuret Pep (0-450) PG/ML Total Protein 6.1 (6.1-8.0) g/dL Albumin 3.0 L (3.5-4.8) g/dL Globulin (2.50-4.10) g/dL Albumin/Globulin Ratio (1.3-2.0) mg/g Amylase (30-110) U/L Lipase (23-300) IU/L Blood Type Antibody Screen Crossmatch Patient Problems - Patient Problem List (1) Acute diverticulitis Current Visit: Yes Status: Acute (2) Choledocholithiasis Current Visit: Yes Status: Acute Comment: This was noted on CT scan and appears to be partially obstructing. I spoke to our surgeon who reviewed the films as well and agreed. (3) Anemia associated with acute blood loss Current Visit: Yes Status: Acute (4) Hypokalemia Current Visit: Yes Status: Acute (5) Atrial fibrillation Current Visit: Yes Status: Chronic Qualifiers: Atrial fibrillation type: chronic Qualified Description: Chronic atrial fibrillation Qualifier Code(s): (I48.2) Chronic atrial fibrillation (6) Hypertension Current Visit: Yes Status: Chronic Qualifiers: Hypertension type: essential hypertension Qualified Description: Essential hypertension Qualifier Code(s): (I10) Essential (primary) hypertension (7) Pleural effusion Current Visit: Yes Status: Chronic (8) Elevated INR Current Visit: Yes Status: Acute (9) Abnormal liver CT Current Visit: Yes Status: Acute
[2017-01-29 14:37] VITALS: RESP 20; TEMP 97.8
== END 2017-01-29 14:51 | disposition short-term general hospital (02) | DRG 392 ==
LOC: ER 17:45 → MED/SURG 21:11
PROVIDERS: ADMIT Family Medicine; ATTEND Family Medicine
PROC: 30233N1 Transfusion of Nonautologous Red Blood Cells into Peripheral Vein, Percutaneous Approach (ICD-10-PCS; principal; 2017-01-28)
DX: I48.91 Unspecified atrial fibrillation (principal); K57.92 Diverticulitis of intestine, part unspecified, without perforation or abscess without bleeding; I42.9 Cardiomyopathy, unspecified; K80.20 Calculus of gallbladder without cholecystitis without obstruction; R10.9 Unspecified abdominal pain; D64.9 Anemia, unspecified; K80.50 Calculus of bile duct without cholangitis or cholecystitis without obstruction
CPT/HCPCS: 36415; 36430; 71010; 71020; 74170; 74177; 80048; 80053; 80076; 82105; 82150; 82803; 83605; 83690; 83735; 83880; 84484; 85007; 85025; 85379; 85610; 86140; 86850; 86900; 86901; 86922; 87040; 93005; 93010; 94761; 96365; 96375; 99284; J0696; J3490; J7030; J7040; J7050; P9016

== ENCOUNTER → 2017-03-22 | Outpatient (CLI) | payer OTHER ==
[2017-03-22 09:59] LABS: BUN/CREATININE RATIO 22.22 (6-20)
== END ==
LOC: LAB 09:32
PROVIDERS: ATTEND Nurse Practitioner Family
DX: I10 Essential (primary) hypertension (principal)
CPT/HCPCS: 36415; 80048

== ENCOUNTER 2019-06-16 13:12 | Inpatient (IN) ==
[2019-06-16] MEDS ORDERED: ALBUTEROL SULFATE 2.5 MG/3 ML NEB ONE ×2 (13:34→13:36)
[2019-06-16] MEDS ORDERED: Sodium Chloride 0.9% 1,000 ML PRIMARY IV ONE (13:34)
[2019-06-16 13:44] LABS: BASOPHILS # (AUTO) 0.03 10*3/UL; BASOPHILS % (AUTO) 0.3 % (0-1); EOSINOPHILS # (AUTO) 0.03 10*3/UL; EOSINOPHILS % (AUTO) 0.3 % (0-8); Hematocrit [HCT] 30.1 % (37.0-47.0); Hemoglobin [HGB] 8.7 g/dL (12.0-16.0); MEAN CORPUSCULAR HGB CONC 28.9 g/dL (33-37); MEAN CORPUSCULAR VOLUME 89.9 FL (81-99); MEAN PLATELET VOLUME 9.7 FL (7.4-12.2); MONOCYTES # (AUTO) 0.84 10*3/UL (0.3-0.8); MONOCYTES % (AUTO) 9.4 % (5-15); NEUTROPHILS # (AUTO) 7.19 10*3/UL; NEUTROPHILS % (AUTO) 80.2 % (50-80); RED BLOOD COUNT 3.35 10^6/uL (4.20-5.40)
[2019-06-16 13:45] LABS: PLATELET MORPHOLOGY COMMENT NORMAL MORPHOLOGY (NORM); RBC MORPHOLOGY COMMENT NORMAL MORPHOLOGY (NORM); WBC MORPHOLOGY COMMENT NORMAL MORPHOLOGY (NORM)
[2019-06-16 13:45] LABS: VENOUS PH 7.43 (7.32-7.42)
[2019-06-16 13:48] LABS: BLOOD UREA NITROGEN 29 mg/dL (7-22); BUN/CREATININE RATIO 32.22 (6-20); SERUM ALBUMIN 3.1 g/dL (3.5-4.8)
[2019-06-16] MEDS ORDERED: FUROSEMIDE 10 MG/1 ML - 4 ML IVP ONE (14:11)
[2019-06-16 16:37] LABS: BILIRUBIN,URINE NEGATIVE (NEG); CLARITY,URINE CLEAR (CLEAR); COLOR,URINE YELLOW (Y); GLUCOSE, URINE (UA) NEGATIVE (NEG); OCCULT BLOOD,URINE NEGATIVE (NEG); PROTEIN,URINE NEGATIVE (NEG); URINE SAMPLE TYPE CLEAN CATCH URINE; UROBILINOGEN,URINE 0.2 EU/dL (0.2)
[2019-06-16] MEDS ORDERED: LIDOCAINE W/ SODIUM BICARB 0.5 ML SYR SUBD PRN (16:43)
[2019-06-16] MEDS ORDERED: ACETAMINOPHEN 325 MG TABLET PO PRN (16:43)
[2019-06-16] MEDS ORDERED: LORATADINE 10 MG TABLET PO PRN (16:45)
[2019-06-16] MEDS ORDERED: PANTOPRAZOLE 40 MG TABLET PO ONE (17:16)
[2019-06-16] MEDS ORDERED: predniSONE Tab 20 MG TAB PO ONE (17:16)
[2019-06-16] MEDS ORDERED: LIDOCAINE HCL 2 % 10 ML JELLY URO-JECT TOPICAL PRN (17:18)
[2019-06-16] MEDS ORDERED: Potassium Chloride Tab 10 MEQ TAB PO ONE (17:20)
[2019-06-16] MEDS: FUROSEMIDE 10 MG/1 ML - 4 ML IVP SCH (19:04)
[2019-06-16] MEDS: CARVEDILOL 6.25 MG TABLET PO SCH (21:14)
[2019-06-16] MEDS: Apixaban 5 MG TABLET PO SCH (21:14)
[2019-06-16] MEDS: GABAPENTIN 100 MG CAPSULE PO SCH (21:14)
[2019-06-17 04:51] LABS: BUN/CREATININE RATIO 25.55 (6-20)
[2019-06-17 04:58] LABS: Hematocrit [HCT] 30.9 % (37.0-47.0); Hemoglobin [HGB] 9.2 g/dL (12.0-16.0); RED BLOOD COUNT 3.53 10^6/uL (4.20-5.40)
[2019-06-17 04:59] LABS: BASOPHILS # (AUTO) 0.01 10*3/UL; BASOPHILS % (AUTO) 0.1 % (0-1); EOSINOPHILS # (AUTO) 0 10*3/UL; EOSINOPHILS % (AUTO) 0 % (0-8); LYMPHOCYTES # (AUTO) 0.49 10*3/uL; MEAN CORPUSCULAR HGB CONC 29.8 g/dL (33-37); MEAN CORPUSCULAR VOLUME 87.5 FL (81-99); MEAN PLATELET VOLUME 9.7 FL (7.4-12.2); MONOCYTES # (AUTO) 0.15 10*3/UL (0.3-0.8); MONOCYTES % (AUTO) 2.2 % (5-15); NEUTROPHILS # (AUTO) 6.08 10*3/UL; PLATELET MORPHOLOGY COMMENT NORMAL MORPHOLOGY (NORM); RBC MORPHOLOGY COMMENT NORMAL MORPHOLOGY (NORM); WBC MORPHOLOGY COMMENT NORMAL MORPHOLOGY (NORM)
[2019-06-17] MEDS: FUROSEMIDE 10 MG/1 ML - 4 ML IVP SCH ×2 (07:35→13:32)
[2019-06-17] MEDS: PANTOPRAZOLE 40 MG TABLET PO SCH (07:35)
[2019-06-17] MEDS: predniSONE Tab 20 MG TAB PO SCH (08:52)
[2019-06-17] MEDS: Apixaban 5 MG TABLET PO SCH ×2 (08:53→20:49)
[2019-06-17] MEDS: FERROUS GLUCONATE 324 MG TABLET PO SCH (08:53)
[2019-06-17] MEDS: GABAPENTIN 100 MG CAPSULE PO SCH ×3 (08:53→20:49)
[2019-06-17] MEDS: POTASSIUM CHLORIDE 20 MEQ TAB PO SCH (08:53)
[2019-06-17] MEDS: CARVEDILOL 6.25 MG TABLET PO SCH ×2 (08:53→20:49)
[2019-06-17] MEDS: BENAZEPRIL HCL 20 MG TABLET PO SCH (08:53)
[2019-06-18] MEDS: FUROSEMIDE 10 MG/1 ML - 4 ML IVP SCH (07:11)
[2019-06-18] MEDS: PANTOPRAZOLE 40 MG TABLET PO SCH (07:11)
[2019-06-18] MEDS: predniSONE Tab 20 MG TAB PO SCH (09:10)
[2019-06-18] MEDS: BENAZEPRIL HCL 20 MG TABLET PO SCH (09:10)
[2019-06-18] MEDS: Apixaban 5 MG TABLET PO SCH (09:11)
[2019-06-18] MEDS: GABAPENTIN 100 MG CAPSULE PO SCH (09:11)
[2019-06-18] MEDS: FERROUS GLUCONATE 324 MG TABLET PO SCH (09:11)
[2019-06-18] MEDS: POTASSIUM CHLORIDE 20 MEQ TAB PO SCH (09:11)
[2019-06-18] MEDS: CARVEDILOL 6.25 MG TABLET PO SCH (09:11)
[2019-06-18 09:19] VITALS: RESP 16; TEMP 98.6
[2019-06-18] MEDS ORDERED: POTASSIUM CHLORIDE 20 MEQ TAB PO ONE (10:58)
[2019-06-18 12:30] VITALS: BP 161/64
[2019-06-18 13:23] VITALS: O2SAT 92
== END 2019-06-18 14:54 | disposition home or self-care (01) | DRG 293 ==
LOC: ER 13:12 → MED/SURG 15:42
PROVIDERS: ADMIT Internal Medicine; ATTEND Internal Medicine